=== PATIENT | female | born 1950 | race Caucasian/White ===

== ENCOUNTER 2016-12-25 12:02 | Observation (INO) | payer OTHER, MEDICARE ==
[~2016-12-25] VITALS: Ht 149.9 cm; Wt 51.6 kg
[2016-12-25 02:30] VITALS: BP 80/60
[2016-12-25 14:13] LABS: MCH 34.5 PG (29.0-34.0); MCHC 33.8 G/DL (30.0-36.0); PLATELET COUNT 119 K/uL (156-360); RBC DIS.WIDTH-CV 12.8 % (11.8-14.6); RBC DIS.WIDTH-SD 48.6 % (39-53); RED BLOOD COUNT 4.41 M/uL (3.80-5.20); WHITE BLOOD COUNT 11.8 K/uL (4.1-10.2)
[2016-12-25 14:24] LABS: CHLORIDE 108 mEq/L (99-109); POTASSIUM 4.2 mEq/L (3.7-5.4); SODIUM 144 mEq/L (136-147)
[2016-12-25 14:25] LABS: GLUCOSE 106 mg/dL (70-99)
[2016-12-25 14:27] LABS: ANION GAP 10 MEQ/L (2-14)
[2016-12-25 14:29] LABS: GFR ESTIMATE (CALCULATED) 53 mL/min/
[2016-12-25 14:30] LABS: UREA NITROGEN (BUN) 19 mg/dL (9-23)
[2016-12-25 15:53] LABS: ADD MIUA? NO; BILIRUBIN NEGATIVE; BLOOD NEGATIVE; COLOR YELLOW ((YELLOW)); GLUCOSE (STRIP) NEGATIVE; KETONES NEGATIVE; LEUKOCYTES NEGATIVE; NITRITE NEGATIVE; PROTEIN (STRIP) NEGATIVE; SPECIFIC GRAVITY 1.018 (1.000-1.030); UCUL ADDED? NO; UROBILINOGEN 0.2 MG/DL (0.2-1.0)
[2016-12-25] MEDS ORDERED: ASPIRIN81 M2 PO (17:54)
[2016-12-25] MEDS ORDERED: LIPITOR10 MG PO (17:54)
[2016-12-25] MEDS ORDERED: ARICEPT10 MG PO (17:55)
[2016-12-25] MEDS ORDERED: COLACE100 MG PO (17:55)
[2016-12-25] MEDS ORDERED: PROVERA,CYCRIN5 MG PO (17:57)
[2016-12-25] MEDS ORDERED: NAMENDA XR28 MG PO (17:58)
[2016-12-25] MEDS ORDERED: ZOLOFT100 MG PO (17:58)
[2016-12-25] MEDS ORDERED: CALTRATE PLUS1 EACH PO (18:00)
[2016-12-25] MEDS ORDERED: BUSPAR10 MG PO (18:00)
[2016-12-25] MEDS ORDERED: ACETAMINOPHEN325 M3 PO (18:01)
[2016-12-25] MEDS ORDERED: MOTRIN800 MG PO (18:02)
[2016-12-25] MEDS ORDERED: VALIUM10 MG PO (18:02)
[2016-12-25] MEDS ORDERED: SINGULAIR10 MG PO (18:02)
[2016-12-25] MEDS ORDERED: MUCINEX DM ER1 EACH PO (18:03)
[2016-12-25] MEDS ORDERED: NEOSPORIN ANT70.8 GM TP (18:04)
[2016-12-25] MEDS ORDERED: EUCERIN CREME120 GM TP (18:04)
[2016-12-25] MEDS ORDERED: QUETIAPINE FUMA25 MG PO (18:05)
[2016-12-25 22:30] VITALS: BP 125/53
[2016-12-26 01:30] VITALS: BP 88/58
[2016-12-26 04:33] VITALS: BP 89/58
[2016-12-26 07:14] LABS: HEMATOCRIT 39.6 % (36.0-46.0); MCH 33.8 PG (29.0-34.0); MCHC 32.6 G/DL (30.0-36.0); MCV 103.7 FL (83-99); MEAN PLAT.VOLUME 10.2 uM^3 (9.5-12.4); PLATELET COUNT 107 K/uL (156-360); RBC DIS.WIDTH-CV 13.1 % (11.8-14.6); RBC DIS.WIDTH-SD 50.3 % (39-53); RED BLOOD COUNT 3.82 M/uL (3.80-5.20); WHITE BLOOD COUNT 11.5 K/uL (4.1-10.2)
[2016-12-26 07:32] LABS: ALKALINE PHOSPHATASE 107 IU/L (3-129); ANION GAP 6 MEQ/L (2-14); CHLORIDE 110 MEQ/L (99-109); GFR ESTIMATE (CALCULATED) 53 mL/min/; GLUCOSE 93 mg/dL (70-99); POTASSIUM 3.7 MEQ/L (3.7-5.4); SAMPLE HEMOLYSIS CHECK 0; SAMPLE ICTERIC CHECK 0; SAMPLE LIPEMIA CHECK 0; SODIUM 143 MEQ/L (136-147); TOTAL BILIRUBIN 0.8 MG/DL (0.0-1.0); UREA NITROGEN (BUN) 17 mg/dL (9-23)
[2016-12-26 08:17] VITALS: BP 90/55
[2016-12-26 20:00] VITALS: BP 103/66
[2016-12-27 00:34] VITALS: BP 104/58
[2016-12-27 04:26] VITALS: BP 98/64
[2016-12-27 07:41] VITALS: BP 120/86
[2016-12-27] MEDS ORDERED: FLAGYL500 MG PO (11:01)
[2016-12-27] MEDS ORDERED: CIPRO500 MG PO (11:01)
== END 2016-12-27 15:54 | disposition home or self-care (01) ==
LOC: EME 12:02 → EDOF 19:54 → 5WEST 19:54 → EDOF 19:54 → ENRESERV 20:10 → 5WEST 22:08
PROVIDERS: Emergency Medicine; Internal Medicine
DX: K62.89 Other specified diseases of anus and rectum (principal); Q90.9 Down syndrome, unspecified; F03.90 Unspecified dementia, unspecified severity, without behavioral disturbance, psychotic disturbance, mood disturbance, and anxiety; E78.5 Hyperlipidemia, unspecified; F32.9 Major depressive disorder, single episode, unspecified; Z79.82 Long term (current) use of aspirin; J98.11 Atelectasis; D75.89 Other specified diseases of blood and blood-forming organs
CPT/HCPCS: 70450; 70480; 71020; 74176; 80048; 80053; 81003; 82607; 83605; 85027; 87040; 87086; 94799; 99202; 99281; 99285; G0378; J0744; J1644; J7030; S0030

== ENCOUNTER → 2017-03-09 | Outpatient (CLI) | payer OTHER, MEDICARE ==
[~2017-03-09] MED LIST: ACETAMINOPHEN325 M3 PO; ARICEPT10 MG PO; ASPIRIN81 M2 PO; AUGMENTIN500 MG PO; BUSPAR10 MG PO; CALTRATE PLUS1 EACH PO; CIPRO500 MG PO; COLACE100 MG PO; EUCERIN CREME120 GM TP; FLAGYL500 MG PO; LIPITOR10 MG PO; MOTRIN800 MG PO; MUCINEX DM ER1 EACH PO; NAMENDA XR28 MG PO; NEOSPORIN ANT70.8 GM TP; PROVERA,CYCRIN5 MG PO; QUETIAPINE FUMA25 MG PO; SINGULAIR10 MG PO; VALIUM10 MG PO; ZOLOFT100 MG PO
== END | disposition home or self-care (01) ==
DX: R13.12 Dysphagia, oropharyngeal phase (principal)
CPT/HCPCS: 92611 GN; G8996 GN; G8997 GN; G8998 GN

== ENCOUNTER 2017-03-25 16:36 | Inpatient (IN) | payer OTHER, MEDICARE ==
[~2017-03-25] VITALS: Ht 152.4 cm; Wt 64.0 kg
[~2017-03-25 16:36] MED LIST changes: -AUGMENTIN500 MG PO
[2017-03-25 17:53] LABS: HEMATOCRIT 42.5 % (36.0-46.0); MCH 34.7 PG (29.0-34.0); MCHC 33.6 G/DL (30.0-36.0); MCV 103.2 FL (83-99); MEAN PLAT.VOLUME 10.1 uM^3 (9.5-12.4); PLATELET COUNT 118 K/uL (156-360); RBC DIS.WIDTH-CV 13.6 % (11.8-14.6); RBC DIS.WIDTH-SD 52.7 % (39-53); RED BLOOD COUNT 4.12 M/uL (3.80-5.20); WHITE BLOOD COUNT 12.3 K/uL (4.1-10.2)
[2017-03-25 18:06] LABS: CHLORIDE 108 mEq/L (99-109); POTASSIUM 4.5 mEq/L (3.7-5.4); SODIUM 143 mEq/L (136-147)
[2017-03-25 18:08] LABS: GLUCOSE 113 mg/dL (70-99)
[2017-03-25 18:09] LABS: ANION GAP 7 MEQ/L (2-14)
[2017-03-25 18:10] LABS: TOTAL BILIRUBIN 0.9 mg/dL (0.0-1.0)
[2017-03-25 18:11] LABS: ALKALINE PHOSPHATASE 146 IU/L (3-129)
[2017-03-25 18:12] LABS: GFR ESTIMATE (CALCULATED) 59 mL/min/
[2017-03-25 18:13] LABS: UREA NITROGEN (BUN) 21 mg/dL (9-23)
[2017-03-25 18:33] LABS: ADD MIUA? NO; BILIRUBIN NEGATIVE; BLOOD NEGATIVE; COLOR YELLOW ((YELLOW)); GLUCOSE (STRIP) NEGATIVE; KETONES NEGATIVE; LEUKOCYTES NEGATIVE; NITRITE NEGATIVE; PROTEIN (STRIP) NEGATIVE; SPECIFIC GRAVITY 1.017 (1.000-1.030); UCUL ADDED? NO; UROBILINOGEN 0.2 MG/DL (0.2-1.0)
[2017-03-25 18:42] LABS: ATYPICAL LYMPHOCYTE 4.4 %; BAND NEUTROPHILS 21.1 % (0-8.0); EOSINOPHIL ABS CT 0; INSTRUMENT ABS NEUTROPHIL CT 10.6 K/uL; LYMPHOCYTES 9.6 % (15.0-45.0); PLAT.SUFFICIENCY DECREASED; SEG.NEUTROPHILS 60.5 % (46.0-76.0)
[2017-03-25 22:00] VITALS: BP 120/80
[2017-03-26 00:20] VITALS: BP 92/55
[2017-03-26 04:15] VITALS: BP 100/60
[2017-03-26 06:40] LABS: HEMATOCRIT 40.8 % (36.0-46.0); MCH 34.6 PG (29.0-34.0); MCHC 32.8 G/DL (30.0-36.0); MCV 105.4 FL (83-99); MEAN PLAT.VOLUME 10.3 uM^3 (9.5-12.4); PLATELET COUNT 86 K/uL (156-360); RBC DIS.WIDTH-CV 14.1 % (11.8-14.6); RBC DIS.WIDTH-SD 54.9 % (39-53); RED BLOOD COUNT 3.87 M/uL (3.80-5.20)
[2017-03-26 07:06] LABS: ANION GAP 6 MEQ/L (2-14); CHLORIDE 114 MEQ/L (99-109); GFR ESTIMATE (CALCULATED) > 59 mL/min/; GLUCOSE 105 mg/dL (70-99); POTASSIUM 3.9 MEQ/L (3.7-5.4); SAMPLE HEMOLYSIS CHECK 0; SAMPLE ICTERIC CHECK 0; SAMPLE LIPEMIA CHECK 0; SODIUM 145 MEQ/L (136-147); UREA NITROGEN (BUN) 18 mg/dL (9-23)
[2017-03-26 07:15] LABS: ABS NEUTROPHIL COUNT 10.3; ANISOCYTOSIS 1+; ATYPICAL LYMPHOCYTE 1.7 %; BAND NEUTROPHILS 25.6 % (0-8.0); EOSINOPHIL ABS CT 0.1; EOSINOPHILS 0.8 % (0-5.0); INSTRUMENT ABS NEUTROPHIL CT 9.8 K/uL; LYMPHOCYTES 2.6 % (15.0-45.0); MACROCYTES 1+; PLAT.SUFFICIENCY DECREASED; SEG.NEUTROPHILS 68.4 % (46.0-76.0)
[2017-03-26 08:23] LABS: ALKALINE PHOSPHATASE 101 IU/L (3-129); DIRECT BILIRUBIN 0.3 mg/dL (0.0-0.3); TOTAL BILIRUBIN 1.1 MG/DL (0.0-1.0)
[2017-03-26 11:47] LABS: HBSG INDEX 0.14; HPCA INDEX 0.09
[2017-03-26 11:48] LABS: AHBS INDEX 691.14; ANTI-HEPATITIS A VIRUS (IGM) Nonreactive; HAV INDEX 0.23
[2017-03-26 11:50] LABS: ANTI-HEPATITIS B CORE (IGM) Nonreactive; HBC IgM INDEX 0.06
[2017-03-26 11:53] LABS: HEPATITIS B SURFACE ANTIBODY REACTIVE
[2017-03-26 16:21] VITALS: BP 93/52
[2017-03-26 20:08] VITALS: BP 96/64
[2017-03-26 23:51] VITALS: BP 107/59
[2017-03-27 04:16] VITALS: BP 109/50
[2017-03-27 06:27] LABS: HEMATOCRIT 35.1 % (36.0-46.0); MCH 34.3 PG (29.0-34.0); MCHC 32.8 G/DL (30.0-36.0); MCV 104.8 FL (83-99); MEAN PLAT.VOLUME 10.7 uM^3 (9.5-12.4); PLATELET COUNT 89 K/uL (156-360); RBC DIS.WIDTH-CV 14.2 % (11.8-14.6); RBC DIS.WIDTH-SD 55.1 % (39-53); RED BLOOD COUNT 3.35 M/uL (3.80-5.20); WHITE BLOOD COUNT 8.9 K/uL (4.1-10.2)
[2017-03-27 06:55] LABS: ALKALINE PHOSPHATASE 148 IU/L (3-129); ALKALINE PHOSPHATASE 155 IU/L (3-129); ANION GAP 6 MEQ/L (2-14); CHLORIDE 115 MEQ/L (99-109); DIRECT BILIRUBIN 0.7 mg/dL (0.0-0.3); GFR ESTIMATE (CALCULATED) > 59 mL/min/; GLUCOSE 98 mg/dL (70-99); POTASSIUM 3.6 MEQ/L (3.7-5.4); SAMPLE HEMOLYSIS CHECK 0; SAMPLE ICTERIC CHECK 0; SAMPLE LIPEMIA CHECK 0; SODIUM 147 MEQ/L (136-147); TOTAL BILIRUBIN 1.4 MG/DL (0.0-1.0); UREA NITROGEN (BUN) 17 mg/dL (9-23)
[2017-03-27 11:37] VITALS: BP 97/66
[2017-03-27 15:52] VITALS: BP 145/75
[2017-03-27 19:51] VITALS: BP 109/68
[2017-03-27 22:40] VITALS: BP 100/51
[2017-03-28 02:52] LABS: TOTAL BILIRUBIN 0.8 mg/dL (0.0-1.0)
[2017-03-28 02:55] LABS: DIRECT BILIRUBIN 0.6 mg/dL (0.0-0.3)
[2017-03-28 02:57] LABS: ALKALINE PHOSPHATASE 260 IU/L (3-129)
[2017-03-28 04:40] VITALS: BP 100/59
[2017-03-28 08:13] VITALS: BP 106/56
[2017-03-28 12:15] VITALS: BP 125/61
[2017-03-28 16:45] VITALS: BP 118/58
[2017-03-28 21:01] VITALS: BP 110/58
[2017-03-28 23:12] VITALS: BP 124/72
[2017-03-29 03:57] VITALS: BP 142/85
[2017-03-29 08:12] VITALS: BP 130/71
[2017-03-29 08:43] LABS: C-REACTIVE PROTEIN 92.4 MG/L (0-10); DIRECT BILIRUBIN 0.3 mg/dL (0.0-0.3); POTASSIUM 3.8 MEQ/L (3.7-5.4)
[2017-03-29 08:45] LABS: ALKALINE PHOSPHATASE 319 IU/L (3-129)
[2017-03-29 09:30] LABS: GFR ESTIMATE (CALCULATED) > 59 mL/min/
[2017-03-29 11:43] VITALS: BP 101/61
[2017-03-29 15:41] VITALS: BP 110/68
[2017-03-29 20:04] VITALS: BP 118/52
[2017-03-30 00:22] VITALS: BP 121/74
[2017-03-30 04:45] VITALS: BP 114/59
[2017-03-30 05:57] LABS: ALKALINE PHOSPHATASE 325 IU/L (3-129); DIRECT BILIRUBIN 0.2 mg/dL (0.0-0.3); MAGNESIUM 2.1 mg/dl (1.3-2.7); POTASSIUM 3.8 MEQ/L (3.7-5.4)
[2017-03-30 05:58] LABS: TOTAL BILIRUBIN 0.7 MG/DL (0.0-1.0)
[2017-03-30 08:14] VITALS: BP 153/74
[2017-03-30 12:17] VITALS: BP 98/55
[2017-03-30] MEDS ORDERED: AUGMENTIN500 MG PO (13:16)
[2017-03-30 16:40] VITALS: BP 104/56
[2017-03-30 22:34] LABS: MITOCHONDRIAL (M2) ANTIBODIES+ <=20.0 U (<=20.0)
[2017-04-02 02:56] LABS: AP Bone Isoenzyme 19 % (28-66); AP Intestine Isoenzyme 0 % (1-24); AP Liver Isoenzyme 53 % (25-69); AP Macrohepatic Isoenzyme 28 % (<=0); AP Placental Isoenzyme 0 % (<=0); Alkaline Phosphatase, Total 306 U/L (33-130)
== END 2017-03-30 18:35 | disposition other institution (70) | DRG 195 ==
LOC: EME 16:36 → EDOF 19:51 → 3EAST 19:51 → ENRESERV 19:55 → CANRESERV 20:38 → ENRESERV 20:38 → 3EAST 21:54
PROVIDERS: Emergency Medicine; Hospitalist; Internal Medicine Gastroenterology
DX: J15.9 Unspecified bacterial pneumonia (principal); R74.0 Nonspecific elevation of levels of transaminase and lactic acid dehydrogenase [LDH]; E87.6 Hypokalemia; Q90.9 Down syndrome, unspecified; K80.80 Other cholelithiasis without obstruction; Z74.01 Bed confinement status; D69.6 Thrombocytopenia, unspecified; Z66 Do not resuscitate; F03.90 Unspecified dementia, unspecified severity, without behavioral disturbance, psychotic disturbance, mood disturbance, and anxiety; F32.89 Other specified depressive episodes; R40.4 Transient alteration of awareness; G93.89 Other specified disorders of brain
CPT/HCPCS: 70450; 71010; 74176; 80048; 80053; 80074; 80076; 80202; 81003; 82565; 83605; 83735; 84075 90; 84080 90; 84132; 85025; 85027; 85651; 86140; 86256 90; 86706; 87040; 87070; 87205; 87449; 94799; 99202; 99281; 99285; J1644; J2543; J3370; J7030; J7050; J7120